=== PATIENT | female | born 1950 | race Two or more races ===

== ENCOUNTER 2018-02-25 11:10 | Inpatient (IN) | payer MEDICAID, OTHER ==
[~2018-02-25] VITALS: Ht 157.5 cm; Wt 62.3 kg
[2018-02-25] MEDS ORDERED: MORPHINE SULFATE 4 MG/ML CPJ (NOT FOR IM USE) IV STA (12:29)
[2018-02-25] MEDS ORDERED: SODIUM CHLORIDE 0.9% 1,000 ML IV ONE (12:33)
[2018-02-25 12:54] LABS: BASOPHILS % 0.3 % (0.0-2.0); EOSINOPHILS % 0.3 % (0.0-5.0); HEMATOCRIT. 28.1 % (36.0-48.0); HEMOGLOBIN. 8.9 g/dL (12.0-16.0); LYMPHOCYTES % 13.4 % (20.0-50.0); MEAN CORPUSCULAR HEMOGLOBIN 29.1 pg (28.0-32.0); MEAN CORPUSCULAR VOLUME 91.7 fL (81.0-99.0); MEAN PLATELET VOLUME 6.8 fl (7.4-10.4); MONOCYTES % 6.4 % (2.0-8.0); NEUTROPHILS % 79.6 % (40.0-76.0); PLATELET 673 x1000/uL (130-400); RED BLOOD CELL COUNT 3.06 mill/uL (4.2-5.4); RED CELL DISTRIBUTION WIDTH 18.5 % (11.6-14.6)
[2018-02-25 12:58] LABS: CHLORIDE 100 mEq/L (98-107)
[2018-02-25] MEDS ORDERED: DEXTROSE 50% WATER 50ML SYRINGE IV PRN (16:00)
[2018-02-25] MEDS ORDERED: ENOXAPARIN 40MG/0.4ML SYR SUBCUT SCH (16:00)
[2018-02-25] MEDS ORDERED: IPRATROPIUM/ALBUTEROL 0.5-3(2.5)MG/3ML NEB INH PRN (16:00)
[2018-02-25] MEDS ORDERED: CLONIDINE 0.1MG TABLET PO PRN (16:00)
[2018-02-25] MEDS ORDERED: LORAZEPAM 0.5MG TABLET PO PRN (16:00)
[2018-02-25] MEDS ORDERED: MAGNESIUM/ALUMINUM HYDROXIDE/SIMETHICONE 30ML UDC PO PRN (16:00)
[2018-02-25] MEDS ORDERED: ONDANSETRON HCL 4MG/2ML INJ IV PRN (16:00)
[2018-02-25] MEDS ORDERED: PIPERACILLIN/TAZ 3.375G PREMIX 50 ML IV SCH ×2 (16:00→19:45)
[2018-02-25] MEDS ORDERED: NA PHOS,M-B/NA PHOS,DI-BA ENEMA 118ML PR PRN (16:00)
[2018-02-25] MEDS ORDERED: DOCUSATE SODIUM 100MG CAPSULE PO PRN (16:00)
[2018-02-25 17:44] LABS: CLARITY URINE CLOUDY (CLEAR); COLOR URINE YELLOW (YELLOW); KETONES URINE NEGATIVE (NEGATIVE); LEUKOCYTE ESTERASE URINE 3+ (NEGATIVE); NITRITE URINE POSITIVE (NEGATIVE); OCCULT BLOOD URINE 2+ (NEGATIVE); PROTEIN URINE 2+ (NEGATIVE); SPECIFIC GRAVITY URINE 1.017 (1.005-1.030); UROBILINOGEN URINE 0.2 E.U./dL (0.2-1.0)
[2018-02-25 17:55] LABS: *AMPHETAMINES SCREEN URINE NEGATIVE (NEGATIVE); *BARBITURATES SCREEN URINE NEGATIVE (NEGATIVE); *BENZODIAZEPINES SCREEN URINE NEGATIVE (NEGATIVE); *COCAINE SCREEN URINE NEGATIVE (NEGATIVE)
[2018-02-25 17:56] LABS: CANNABINOID URINE SCREEN NEGATIVE (NEGATIVE); METHADONE URINE SCREEN NEGATIVE (NEGATIVE); OPIATES URINE SCREEN PRESUMTIVE POSITIVE (NEGATIVE); PHENCYCLIDINE URINE SCREEN NEGATIVE (NEGATIVE)
[2018-02-25 18:41] LABS: ETHANOL BLOOD < 10 mg/dL
[2018-02-25 18:44] LABS: HDL CHOLESTEROL 28 mg/dL (40-59); LDL CHOLESTEROL 32 mg/dL (5-100); TOTAL IRON BINDING CAPACITY 115 ug/dL (250-450)
[2018-02-25 18:56] LABS: FOLIC ACID (FOLATE) SERUM >20 ng/mL ng/mL (>5.38)
[2018-02-25 19:08] LABS: VITAMIN B12 SERUM 1420 pg/mL (211-911)
[2018-02-25] MEDS ORDERED: PANTOPRAZOLE 80 MG in SODIUM CHLORIDE 0.9% 100 ML IV SCH (20:00)
[2018-02-25] MEDS: PANTOPRAZOLE 80 MG in SODIUM CHLORIDE 0.9% 100 ML IV SCH (20:40)
[2018-02-25] MEDS: SODIUM CHLORIDE 0.9% 1,000 ML IV SCH (20:40)
[2018-02-25] MEDS: BLOOD SUGAR DIAGNOSTIC STRIP TEST SCH ×2 (21:00→21:41)
[2018-02-25] MEDS: INSULIN LISPRO 100 UNITS/ML SUBCUT SCH (21:42)
[2018-02-25] MEDS ORDERED: VANCOMYCIN 1 G PREMIX 200 ML IV SCH (23:30)
[2018-02-25 23:45] VITALS: BP 96/45
[2018-02-25 23:51] LABS: CREATINE KINASE MB FRACTION 2.7 ng/mL (0.5-3.6)
[2018-02-26] MEDS ORDERED: VANCOMYCIN 1250MG in DEXTROSE 5% WATER 250ML IV SCH (02:00)
[2018-02-26] MEDS: SODIUM CHLORIDE 0.9% 1,000 ML IV SCH ×3 (02:18→22:02)
[2018-02-26 04:00] VITALS: BP 129/72
[2018-02-26 07:02] LABS: CREATINE KINASE MB FRACTION 1.9 ng/mL (0.5-3.6)
[2018-02-26] MEDS: BLOOD SUGAR DIAGNOSTIC STRIP TEST SCH ×4 (07:06→21:22)
[2018-02-26] MEDS: PIPERACILLIN/TAZ 2.25G PREMIX 50 ML IV SCH ×4 (07:09→23:47)
[2018-02-26] MEDS: INSULIN LISPRO 100 UNITS/ML SUBCUT SCH ×4 (07:26→21:00)
[2018-02-26 08:00] VITALS: BP 98/46
[2018-02-26] MEDS: ACETAMINOPHEN 325MG TABLET PO PRN (08:47)
[2018-02-26] MEDS: PANTOPRAZOLE 80 MG in SODIUM CHLORIDE 0.9% 100 ML IV SCH (11:41)
[2018-02-26] MEDS: TRAMADOL 50MG TABLET PO PRN (11:57)
[2018-02-26] MEDS ORDERED: INFLUENZA VIRUS VACCINE(AFLURIA) 0.5ML SYR IM ONE (12:00)
[2018-02-26] MEDS ORDERED: PNEUMOCOCCAL 23-VAL P-SAC VAC 0.5 ML IM ONE (12:00)
[2018-02-26 14:25] VITALS: BP 94/50
[2018-02-26 15:31] LABS: HEMATOCRIT. 21.7 % (36.0-48.0); HEMOGLOBIN. 7.1 g/dL (12.0-16.0); MEAN CORPUSCULAR HEMOGLOBIN 29.1 pg (28.0-32.0); MEAN PLATELET VOLUME 6.6 fl (7.4-10.4); PLATELET 543 x1000/uL (130-400); RED BLOOD CELL COUNT 2.44 mill/uL (4.2-5.4); RED CELL DISTRIBUTION WIDTH 18.1 % (11.6-14.6)
[2018-02-26] MEDS: ALBUMIN HUMAN 25GM/100ML (25%) IV SCH ×2 (15:55→21:17)
[2018-02-26 16:00] VITALS: BP_SYST 105; BP_SYST 115; BP_DIAS 47; BP_DIAS 56
[2018-02-26 16:20] LABS: PLATELET ESTIMATE INCREASED
[2018-02-26] MEDS: SODIUM HYPOCHLORITE 0.125% 473ML SOLUTION TOP SCH (18:34)
[2018-02-26 20:00] VITALS: BP 94/46
[2018-02-26] MEDS: VANCOMYCIN 750 MG PREMIX 150 ML IV SCH (21:17)
[2018-02-26] MEDS: FAMOTIDINE 20MG TABLET PO SCH (21:17)
[2018-02-26 23:58] VITALS: BP 90/45
[2018-02-27] VITALS (11 sets, daily range): BP systolic 88–118; BP diastolic 33–58
[2018-02-27] MEDS ORDERED: VANCOMYCIN 1 G PREMIX 200 ML IV SCH (02:00)
[2018-02-27] MEDS: PIPERACILLIN/TAZ 2.25G PREMIX 50 ML IV SCH ×4 (06:41→23:50)
[2018-02-27] MEDS: BLOOD SUGAR DIAGNOSTIC STRIP TEST SCH ×4 (06:55→20:38)
[2018-02-27] MEDS: ALBUMIN HUMAN 25GM/100ML (25%) IV SCH (06:56)
[2018-02-27] MEDS: SODIUM CHLORIDE 0.9% 1,000 ML IV SCH ×2 (07:48→15:45)
[2018-02-27] MEDS: INSULIN LISPRO 100 UNITS/ML SUBCUT SCH ×4 (07:50→20:42)
[2018-02-27] MEDS: SODIUM HYPOCHLORITE 0.125% 473ML SOLUTION TOP SCH (09:00)
[2018-02-27 10:00] LABS: HEMATOCRIT 27.5 % (36.0-48.0); HEMOGLOBIN 9.2 g/dL (12.0-16.0)
[2018-02-27] MEDS: TRAMADOL 50MG TABLET PO PRN (11:22)
[2018-02-27] MEDS: VANCOMYCIN 750 MG PREMIX 150 ML IV SCH (13:55)
[2018-02-27] MEDS: FAMOTIDINE 20MG TABLET PO SCH (20:38)
[2018-02-28] VITALS: BP 109/52
[2018-02-28] MEDS: SODIUM CHLORIDE 0.9% 1,000 ML IV SCH ×2 (03:48→21:01)
[2018-02-28 04:00] VITALS: BP 114/50
[2018-02-28] MEDS: PIPERACILLIN/TAZ 2.25G PREMIX 50 ML IV SCH ×3 (06:20→17:09)
[2018-02-28] MEDS: ACETAMINOPHEN 325MG TABLET PO PRN (06:20)
[2018-02-28] MEDS: BLOOD SUGAR DIAGNOSTIC STRIP TEST SCH ×4 (06:28→21:00)
[2018-02-28 08:00] VITALS: BP 109/59
[2018-02-28] MEDS: SODIUM HYPOCHLORITE 0.125% 473ML SOLUTION TOP SCH (08:10)
[2018-02-28] MEDS: VANCOMYCIN 750 MG PREMIX 150 ML IV SCH (08:10)
[2018-02-28] MEDS: INSULIN LISPRO 100 UNITS/ML SUBCUT SCH ×4 (08:14→21:00)
[2018-02-28] MEDS: TRAMADOL 50MG TABLET PO PRN ×2 (08:17→16:32)
[2018-02-28 09:59] LABS: BASOPHILS % 0.4 % (0.0-2.0); EOSINOPHILS % 1.5 % (0.0-5.0); HEMOGLOBIN. 9.1 g/dL (12.0-16.0); LYMPHOCYTES % 11.2 % (20.0-50.0); MEAN CORPUSCULAR HEMOGLOBIN 29.2 pg (28.0-32.0); MEAN CORPUSCULAR VOLUME 86.8 fL (81.0-99.0); MEAN PLATELET VOLUME 6.7 fl (7.4-10.4); MONOCYTES % 4.1 % (2.0-8.0); NEUTROPHILS % 82.8 % (40.0-76.0); PLATELET 475 x1000/uL (130-400); RED BLOOD CELL COUNT 3.12 mill/uL (4.2-5.4); RED CELL DISTRIBUTION WIDTH 16.6 % (11.6-14.6)
[2018-02-28 11:34] VITALS: BP 96/51
[2018-02-28 15:29] VITALS: BP 106/54
[2018-02-28 20:00] VITALS: BP 113/55
[2018-02-28] MEDS: FAMOTIDINE 20MG TABLET PO SCH (20:58)
[2018-03-01] VITALS: BP 120/69
[2018-03-01] MEDS: PIPERACILLIN/TAZ 2.25G PREMIX 50 ML IV SCH ×3 (00:24→11:57)
[2018-03-01 04:00] VITALS: BP 137/73
[2018-03-01] MEDS: TRAMADOL 50MG TABLET PO PRN ×2 (04:29→15:25)
[2018-03-01] MEDS: BLOOD SUGAR DIAGNOSTIC STRIP TEST SCH ×2 (06:38→11:56)
[2018-03-01] MEDS: INSULIN LISPRO 100 UNITS/ML SUBCUT SCH ×2 (07:50→11:58)
[2018-03-01 08:37] VITALS: BP 131/70
[2018-03-01] MEDS: SODIUM CHLORIDE 0.9% 1,000 ML IV SCH (08:57)
[2018-03-01] MEDS: SODIUM HYPOCHLORITE 0.125% 473ML SOLUTION TOP SCH (08:57)
[2018-03-01 11:32] VITALS: BP 131/70
[2018-03-01 12:12] VITALS: BP 141/90
[2018-03-01 15:25] VITALS: BP 141/90
[2018-03-25] MEDS ORDERED: LINE600T32 MT (17:56)
== END 2018-03-01 15:55 | disposition home or self-care (01) | DRG 710 ==
LOC: ER 11:10 → 6WST 13:49 → EDBEDREQ 13:56 → EDBEDREQTM 13:56 → ENRESERV 22:14
PROVIDERS: ADMIT Internal Medicine; ATTEND Internal Medicine
PROC: 02HV33Z Insertion of Infusion Device into Superior Vena Cava, Percutaneous Approach (ICD-10-PCS; 2018-02-25)
PROC: B548ZZA Ultrasonography of Superior Vena Cava, Guidance (ICD-10-PCS; 2018-02-25)
PROC: 0KBV0ZZ Excision of Right Foot Muscle, Open Approach (ICD-10-PCS; principal; 2018-02-27)
PROC: 30233N1 Transfusion of Nonautologous Red Blood Cells into Peripheral Vein, Percutaneous Approach (ICD-10-PCS; 2018-02-27)
PROC: 0KBW0ZZ Excision of Left Foot Muscle, Open Approach (ICD-10-PCS; 2018-02-27)
DX: A41.9 Sepsis, unspecified organism (principal); N17.0 Acute kidney failure with tubular necrosis; E43 Unspecified severe protein-calorie malnutrition; L89.150 Pressure ulcer of sacral region, unstageable; D68.59 Other primary thrombophilia; L89.620 Pressure ulcer of left heel, unstageable; E83.51 Hypocalcemia; E87.1 Hypo-osmolality and hyponatremia; L89.890 Pressure ulcer of other site, unstageable; I10 Essential (primary) hypertension; K59.00 Constipation, unspecified; N28.1 Cyst of kidney, acquired; R65.20 Severe sepsis without septic shock; K63.89 Other specified diseases of intestine; E11.9 Type 2 diabetes mellitus without complications; E78.5 Hyperlipidemia, unspecified; J98.11 Atelectasis; I87.2 Venous insufficiency (chronic) (peripheral); N39.0 Urinary tract infection, site not specified; K80.20 Calculus of gallbladder without cholecystitis without obstruction; S90.822A Blister (nonthermal), left foot, initial encounter; R07.89 Other chest pain; S90.821A Blister (nonthermal), right foot, initial encounter; X58.XXXA Exposure to other specified factors, initial encounter; Y99.8 Other external cause status; Y93.89 Activity, other specified; Y92.89 Other specified places as the place of occurrence of the external cause; Z86.73 Personal history of transient ischemic attack (TIA), and cerebral infarction without residual deficits; I25.2 Old myocardial infarction; Z93.3 Colostomy status; Z68.25 Body mass index [BMI] 25.0-25.9, adult; Z93.6 Other artificial openings of urinary tract status; Z85.038 Personal history of other malignant neoplasm of large intestine; Z85.51 Personal history of malignant neoplasm of bladder
CPT/HCPCS: 36415; 36569; 71045; 71250; 74176; 76937; 80048; 80061; 80202; 80305; 82550; 82553; 82607; 82746; 82962; 83036; 83540; 83550; 83605; 83880; 84134; 84484; 85014; 85018; 85379; 86850; 86900; 86920; 87077; 87186; 93306; 93970; 96361; 96374; 99285; A6261; C1725; C1893; C9113; G0482; J1815; J2270; J2543; J3370; J7030; J7050; J7060; P9016; P9047

== ENCOUNTER 2018-03-20 13:53 | Inpatient (IN) | payer MEDICAID, OTHER ==
[~2018-03-20] VITALS: Ht 167.6 cm; Wt 54.9 kg
[2018-03-20] MEDS ORDERED: SODIUM CHLORIDE 0.9% 1,000 ML IV ONE (14:38)
[2018-03-20] MEDS ORDERED: PIPERACILLIN/TAZ 3.375G PREMIX 50 ML IV ONE (14:45)
[2018-03-20] MEDS ORDERED: VANCOMYCIN 1 G PREMIX 200 ML IV ONE (14:45)
[2018-03-20 15:43] LABS: CHLORIDE 89 mEq/L (98-107)
[2018-03-20 15:45] LABS: BASOPHILS % 0.2 % (0.0-2.0); EOSINOPHILS % 0.1 % (0.0-5.0); HEMOGLOBIN. 9.7 g/dL (12.0-16.0); INR 1.1; MEAN CORPUSCULAR HEMOGLOBIN 29.9 pg (28.0-32.0); MEAN CORPUSCULAR VOLUME 92.4 fL (81.0-99.0); MEAN PLATELET VOLUME 7.7 fl (7.4-10.4); MONOCYTES % 4.1 % (2.0-8.0); NEUTROPHILS % 87.6 % (40.0-76.0); PLATELET 716 x1000/uL (130-400); PROTHROMBIN TIME 11.5 sec (9.1-11.1); RED BLOOD CELL COUNT 3.25 mill/uL (4.2-5.4); RED CELL DISTRIBUTION WIDTH 20.2 % (11.6-14.6)
[2018-03-20] MEDS ORDERED: ONDANSETRON HCL 4MG/2ML INJ IV ONE (16:30)
[2018-03-20] MEDS ORDERED: MORPHINE SULFATE 4 MG/ML CPJ (NOT FOR IM USE) IV ONE (16:30)
[2018-03-20 16:53] LABS: CLARITY URINE TURBID (CLEAR); COLOR URINE AMBER (YELLOW); KETONES URINE TRACE (NEGATIVE); LEUKOCYTE ESTERASE URINE 3+ (NEGATIVE); NITRITE URINE POSITIVE (NEGATIVE); OCCULT BLOOD URINE 2+ (NEGATIVE); PH URINE 5.5 (4.5-8.0); PROTEIN URINE 2+ (NEGATIVE); SPECIFIC GRAVITY URINE 1.022 (1.005-1.030); UROBILINOGEN URINE 0.2 E.U./dL (0.2-1.0)
[2018-03-20] MEDS ORDERED: MAGNESIUM/ALUMINUM HYDROXIDE/SIMETHICONE 30ML UDC PO PRN (19:30)
[2018-03-20] MEDS ORDERED: DOCUSATE SODIUM 100MG CAPSULE PO PRN (19:30)
[2018-03-20] MEDS ORDERED: ENOXAPARIN 40MG/0.4ML SYR SUBCUT SCH (19:30)
[2018-03-20] MEDS ORDERED: IPRATROPIUM/ALBUTEROL 0.5-3(2.5)MG/3ML NEB INH PRN (19:30)
[2018-03-20] MEDS ORDERED: DIPHENHYDRAMINE 50MG/ML VIAL IV PRN (19:30)
[2018-03-20] MEDS ORDERED: ACETAMINOPHEN 650MG/20.3ML UDC GT PRN (19:30)
[2018-03-20] MEDS ORDERED: ACETAMINOPHEN 650MG SUPP PR PRN (19:30)
[2018-03-20] MEDS ORDERED: CLONIDINE 0.1MG TABLET PO PRN (19:30)
[2018-03-20] MEDS ORDERED: ONDANSETRON HCL 4MG/2ML INJ IV PRN (19:30)
[2018-03-20] MEDS ORDERED: GUAIFENESIN 200MG/10ML SUGAR FREE UDC PO PRN (19:30)
[2018-03-20] MEDS ORDERED: ACETAMINOPHEN 325MG TABLET PO PRN (19:30)
[2018-03-20] MEDS ORDERED: PIPERACILLIN/TAZ 3.375G PREMIX 50 ML IV SCH (19:30)
[2018-03-20] MEDS ORDERED: NA PHOS,M-B/NA PHOS,DI-BA ENEMA 118ML PR PRN (21:00)
[2018-03-20 22:00] VITALS: BP 85/47
[2018-03-20] MEDS: SODIUM CHLORIDE 0.45% 1,000 ML IV SCH (22:39)
[2018-03-20] MEDS: SODIUM CHLORIDE 0.9% INJ 3ML FLUSH IVF SCH (22:39)
[2018-03-20 23:00] VITALS: BP 90/47
[2018-03-21] VITALS (10 sets, daily range): BP systolic 85–95; BP diastolic 44–47
[2018-03-21] MEDS: PIPERACILLIN/TAZ 2.25G PREMIX 50 ML IV SCH ×3 (01:29→16:04)
[2018-03-21] MEDS ORDERED: SODIUM CHLORIDE 0.9% 1,000 ML IV SCH ×2 (02:00→03:00)
[2018-03-21] MEDS ORDERED: ALBUMIN HUMAN 25GM/100ML (25%) IV SCH (03:00)
[2018-03-21] MEDS: SODIUM CHLORIDE 0.9% INJ 3ML FLUSH IVF SCH ×3 (07:09→22:40)
[2018-03-21 07:17] LABS: HEMATOCRIT. 24.9 % (36.0-48.0); HEMOGLOBIN. 8.1 g/dL (12.0-16.0); MEAN CORPUSCULAR HEMOGLOBIN 30.2 pg (28.0-32.0); MEAN PLATELET VOLUME 7.1 fl (7.4-10.4); PLATELET 572 x1000/uL (130-400); RED BLOOD CELL COUNT 2.68 mill/uL (4.2-5.4); RED CELL DISTRIBUTION WIDTH 20.5 % (11.6-14.6)
[2018-03-21 07:33] LABS: CHLORIDE 98 mEq/L (98-107)
[2018-03-21 08:17] LABS: CREATINE KINASE 21 IU/L (26-192); LDL CHOLESTEROL 51 mg/dL (5-100)
[2018-03-21 08:18] LABS: HDL CHOLESTEROL 18 mg/dL (40-59)
[2018-03-21 08:21] LABS: CREATINE KINASE MB FRACTION < 1.0 ng/mL (0.5-3.6)
[2018-03-21] MEDS: SODIUM CHLORIDE 0.45% 1,000 ML IV SCH (09:19)
[2018-03-21] MEDS ORDERED: LIDOCAINE HCL/EPINEPHRINE 1%-EPI 1:100,000 20 ML VIAL INFIL NR (10:00)
[2018-03-21] MEDS ORDERED: DEXTROSE 50% WATER 50ML SYRINGE IV PRN (15:00)
[2018-03-21] MEDS ORDERED: DIPHENOXYLATE/ATROPINE 2.5/0.025MG TABLET PO NR (15:00)
[2018-03-21] MEDS ORDERED: SODIUM CHLORIDE 0.9% 1000ML BAG (SEPSIS BOLUS) IV NR (15:00)
[2018-03-21 16:12] LABS: PLATELET ESTIMATE INCREASED
[2018-03-21] MEDS: BLOOD SUGAR DIAGNOSTIC STRIP TEST SCH ×2 (16:45→21:40)
[2018-03-21] MEDS: INSULIN LISPRO 100 UNITS/ML SUBCUT SCH ×2 (17:15→21:00)
[2018-03-21] MEDS: DEXT 5%/0.9% NACL 1,000 ML IV SCH (20:12)
[2018-03-21] MEDS ORDERED: VANCOMYCIN 750 MG PREMIX 150 ML IV SCH (21:00)
[2018-03-21] MEDS ORDERED: FLUCONAZOLE 200 MG/100ML BAG 100 ML IV NR (22:00)
[2018-03-21] MEDS: ENOXAPARIN 30MG/0.3ML SYR SUBCUT SCH ×2 (22:40)
[2018-03-22] VITALS (7 sets, daily range): BP systolic 86–103; BP diastolic 44–52
[2018-03-22] MEDS: PIPERACILLIN/TAZ 2.25G PREMIX 50 ML IV SCH ×2 (01:04→08:20)
[2018-03-22 06:50] LABS: HEMATOCRIT. 27.6 % (36.0-48.0); HEMOGLOBIN. 8.9 g/dL (12.0-16.0); MEAN CORPUSCULAR HEMOGLOBIN 29.8 pg (28.0-32.0); MEAN CORPUSCULAR VOLUME 92.9 fL (81.0-99.0); RED BLOOD CELL COUNT 2.98 mill/uL (4.2-5.4); RED CELL DISTRIBUTION WIDTH 20.3 % (11.6-14.6)
[2018-03-22] MEDS: BLOOD SUGAR DIAGNOSTIC STRIP TEST SCH ×4 (06:54→21:07)
[2018-03-22] MEDS: INSULIN LISPRO 100 UNITS/ML SUBCUT SCH ×4 (06:55→21:42)
[2018-03-22] MEDS: SODIUM CHLORIDE 0.9% INJ 3ML FLUSH IVF SCH ×3 (06:57→21:33)
[2018-03-22 07:24] LABS: CHLORIDE 99 mEq/L (98-107)
[2018-03-22 07:31] LABS: PHOSPHORUS 4.1 mg/dL (2.5-4.9)
[2018-03-22] MEDS: DEXT 5%/0.9% NACL 1,000 ML IV SCH ×2 (08:33→21:06)
[2018-03-22 10:12] LABS: CORTISOL 21.5 ucg/dL
[2018-03-22 10:13] LABS: CARCINO EMBRYONIC ANTIGEN 8.1 ng/ml
[2018-03-22 15:17] LABS: PLATELET ESTIMATE INCREASED
[2018-03-22 15:18] LABS: PLATELET 666 x1000/uL (130-400)
[2018-03-22] MEDS ORDERED: PIPERACILLIN/TAZ 2.25G PREMIX 50 ML IV SCH (18:00)
[2018-03-22] MEDS: NYSTATIN POWDER 15GM TOP SCH (18:47)
[2018-03-22] MEDS: ENOXAPARIN 30MG/0.3ML SYR SUBCUT SCH ×2 (21:07→21:34)
[2018-03-22] MEDS: CEFTAZIDIME PENTAHYDRATE 1 G in DEXTROSE 5% WATER 50 ML IV SCH (21:07)
[2018-03-22] MEDS: FLUCONAZOLE 100MG/50ML in BAG IV SCH (21:35)
[2018-03-23] VITALS: BP 89/51
[2018-03-23] MEDS: DEXT 5%/0.9% NACL 1,000 ML IV SCH
[2018-03-23 04:00] VITALS: BP 94/52
[2018-03-23] MEDS: BLOOD SUGAR DIAGNOSTIC STRIP TEST SCH ×4 (06:15→21:24)
[2018-03-23] MEDS: SODIUM CHLORIDE 0.9% INJ 3ML FLUSH IVF SCH ×3 (06:33→21:24)
[2018-03-23] MEDS: INSULIN LISPRO 100 UNITS/ML SUBCUT SCH ×4 (06:37→21:24)
[2018-03-23 08:23] VITALS: BP 111/54
[2018-03-23] MEDS: NYSTATIN POWDER 15GM TOP SCH ×3 (09:49→21:26)
[2018-03-23 12:15] VITALS: BP 106/53
[2018-03-23 16:00] VITALS: BP 129/66
[2018-03-23 17:40] LABS: BASOPHILS % 0.2 % (0.0-2.0); HEMATOCRIT. 28.6 % (36.0-48.0); HEMOGLOBIN. 9.2 g/dL (12.0-16.0); LYMPHOCYTES % 8.1 % (20.0-50.0); MEAN CORPUSCULAR HEMOGLOBIN 29.8 pg (28.0-32.0); MEAN CORPUSCULAR VOLUME 92.6 fL (81.0-99.0); MEAN PLATELET VOLUME 7.2 fl (7.4-10.4); MONOCYTES % 2.6 % (2.0-8.0); NEUTROPHILS % 88.1 % (40.0-76.0); PLATELET 694 x1000/uL (130-400); RED BLOOD CELL COUNT 3.09 mill/uL (4.2-5.4); RED CELL DISTRIBUTION WIDTH 20.8 % (11.6-14.6)
[2018-03-23 17:51] LABS: CHLORIDE 99 mEq/L (98-107)
[2018-03-23] MEDS: HYDROCODONE/ACETAMINOPHEN 5/325MG TABLET PO PRN (18:15)
[2018-03-23 20:00] VITALS: BP 111/53
[2018-03-23] MEDS: FLUCONAZOLE 100MG/50ML in BAG IV SCH (21:00)
[2018-03-23] MEDS: ENOXAPARIN 30MG/0.3ML SYR SUBCUT SCH (21:25)
[2018-03-23] MEDS: CEFTAZIDIME PENTAHYDRATE 1 G in DEXTROSE 5% WATER 50 ML IV SCH (21:25)
[2018-03-23] MEDS ORDERED: LINEZOLID 600 MG PREMIX 300 ML IV SCH (21:30)
[2018-03-23] MEDS: LINEZOLID 600 MG PREMIX 300 ML IV SCH (22:30)
[2018-03-24] VITALS: BP 128/57
[2018-03-24] MEDS: DEXT 5%/0.9% NACL 1,000 ML IV SCH ×2 (02:33→20:23)
[2018-03-24 04:00] VITALS: BP 128/57
[2018-03-24] MEDS: SODIUM CHLORIDE 0.9% INJ 3ML FLUSH IVF SCH ×3 (06:00→21:09)
[2018-03-24] MEDS: BLOOD SUGAR DIAGNOSTIC STRIP TEST SCH ×4 (06:47→20:18)
[2018-03-24] MEDS: INSULIN LISPRO 100 UNITS/ML SUBCUT SCH ×4 (06:48→20:19)
[2018-03-24 07:50] VITALS: BP 104/53
[2018-03-24 10:19] LABS: PHOSPHORUS 3.7 mg/dL (2.5-4.9)
[2018-03-24] MEDS: LINEZOLID 600 MG PREMIX 300 ML IV SCH ×2 (10:30→23:40)
[2018-03-24 11:58] VITALS: BP 97/58
[2018-03-24] MEDS ORDERED: SODIUM BICARBONATE 4% (2.4MEQ) 5ML VIAL IV ONE (13:41)
[2018-03-24] MEDS ORDERED: LIDOCAINE HCL 1% 20ML VIAL (Pyxis) INJ ONE (13:41)
[2018-03-24 15:55] LABS: BASOPHILS % 0.1 % (0.0-2.0); EOSINOPHILS % 0.5 % (0.0-5.0); HEMATOCRIT. 29.7 % (36.0-48.0); HEMOGLOBIN. 9.4 g/dL (12.0-16.0); LYMPHOCYTES % 9.6 % (20.0-50.0); MEAN CORPUSCULAR HEMOGLOBIN 29.9 pg (28.0-32.0); MEAN CORPUSCULAR VOLUME 94.6 fL (81.0-99.0); MEAN PLATELET VOLUME 6.8 fl (7.4-10.4); MONOCYTES % 3.3 % (2.0-8.0); NEUTROPHILS % 86.5 % (40.0-76.0); PLATELET 671 x1000/uL (130-400); RED BLOOD CELL COUNT 3.14 mill/uL (4.2-5.4); RED CELL DISTRIBUTION WIDTH 20.9 % (11.6-14.6)
[2018-03-24 16:00] VITALS: BP 111/54
[2018-03-24] MEDS: NYSTATIN POWDER 15GM TOP SCH ×2 (17:41→20:20)
[2018-03-24 20:00] VITALS: BP 118/60
[2018-03-24] MEDS: CEFTAZIDIME PENTAHYDRATE 1 G in DEXTROSE 5% WATER 50 ML IV SCH (20:18)
[2018-03-24] MEDS: ENOXAPARIN 30MG/0.3ML SYR SUBCUT SCH (21:08)
[2018-03-24] MEDS: FLUCONAZOLE 100MG/50ML in BAG IV SCH (21:09)
[2018-03-24] MEDS ORDERED: DIPHENOXYLATE/ATROPINE 2.5/0.025MG TABLET PO NR (21:58)
[2018-03-25] VITALS: BP 116/52
[2018-03-25 04:00] VITALS: BP 118/59
[2018-03-25] MEDS: HYDROCODONE/ACETAMINOPHEN 5/325MG TABLET PO PRN (04:37)
[2018-03-25] MEDS: SODIUM CHLORIDE 0.9% INJ 3ML FLUSH IVF SCH ×3 (06:47→22:06)
[2018-03-25] MEDS: INSULIN LISPRO 100 UNITS/ML SUBCUT SCH ×4 (06:47→21:00)
[2018-03-25] MEDS: BLOOD SUGAR DIAGNOSTIC STRIP TEST SCH ×4 (06:47→21:30)
[2018-03-25 08:00] VITALS: BP 103/55
[2018-03-25 08:42] LABS: PHOSPHORUS 3.5 mg/dL (2.5-4.9)
[2018-03-25 08:44] LABS: BASOPHILS % 0.6 % (0.0-2.0); EOSINOPHILS % 0.7 % (0.0-5.0); HEMATOCRIT. 24.3 % (36.0-48.0); LYMPHOCYTES % 10.8 % (20.0-50.0); MEAN CORPUSCULAR HEMOGLOBIN 29.9 pg (28.0-32.0); MEAN PLATELET VOLUME 7.2 fl (7.4-10.4); MONOCYTES % 3.5 % (2.0-8.0); NEUTROPHILS % 84.4 % (40.0-76.0); PLATELET 603 x1000/uL (130-400); RED BLOOD CELL COUNT 2.67 mill/uL (4.2-5.4)
[2018-03-25] MEDS: NYSTATIN POWDER 15GM TOP SCH ×5 (08:47→21:36)
[2018-03-25] MEDS ORDERED: POTASSIUM CHLORIDE 20MEQ TABLET SR PO NR ×2 (09:00→12:00)
[2018-03-25] MEDS: LINEZOLID 600 MG PREMIX 300 ML IV SCH ×2 (11:44→22:56)
[2018-03-25 12:15] VITALS: BP 113/52
[2018-03-25 16:30] VITALS: BP 99/51
[2018-03-25] MEDS ORDERED: LINE600T32 MT (17:56)
[2018-03-25 20:00] VITALS: BP 115/67
[2018-03-25] MEDS ORDERED: DIPHENOXYLATE/ATROPINE 2.5/0.025MG TABLET PO NR (20:30)
[2018-03-25] MEDS: CEFTAZIDIME PENTAHYDRATE 1 G in DEXTROSE 5% WATER 50 ML IV SCH (20:55)
[2018-03-25] MEDS: ENOXAPARIN 30MG/0.3ML SYR SUBCUT SCH (22:07)
[2018-03-26] VITALS (7 sets, daily range): BP systolic 96–119; BP diastolic 54–64
[2018-03-26] MEDS: INSULIN LISPRO 100 UNITS/ML SUBCUT SCH ×3 (06:32→17:15)
[2018-03-26] MEDS: BLOOD SUGAR DIAGNOSTIC STRIP TEST SCH ×3 (06:32→16:51)
[2018-03-26] MEDS: SODIUM CHLORIDE 0.9% INJ 3ML FLUSH IVF SCH ×2 (07:02→15:18)
[2018-03-26] MEDS: LINEZOLID 600 MG PREMIX 300 ML IV SCH (10:28)
[2018-03-26] MEDS: NYSTATIN POWDER 15GM TOP SCH ×2 (10:29→15:18)
[2018-03-26 11:03] LABS: BASOPHILS % 0.4 % (0.0-2.0); EOSINOPHILS % 0.4 % (0.0-5.0); HEMATOCRIT. 26.5 % (36.0-48.0); HEMOGLOBIN. 8.7 g/dL (12.0-16.0); LYMPHOCYTES % 12.8 % (20.0-50.0); MEAN CORPUSCULAR VOLUME 90.9 fL (81.0-99.0); MONOCYTES % 2.8 % (2.0-8.0); NEUTROPHILS % 83.6 % (40.0-76.0); PLATELET 624 x1000/uL (130-400); RED BLOOD CELL COUNT 2.91 mill/uL (4.2-5.4); RED CELL DISTRIBUTION WIDTH 20.8 % (11.6-14.6)
[2018-03-26 11:24] LABS: PHOSPHORUS 3.1 mg/dL (2.5-4.9)
[2018-03-26] MEDS ORDERED: HYDROCODONE/ACETAMINOPHEN 10/325MG TABLET PO PRN (12:00)
[2018-03-26] MEDS ORDERED: POTASSIUM CHLORIDE 20MEQ TABLET SR PO SCH (14:30)
[2018-03-26] MEDS ORDERED: MAGNESIUM 2 G PREMIX 50 ML IV SCH (14:30)
== END 2018-03-26 20:32 | disposition home or self-care (01) | DRG 710 ==
LOC: ER 13:53 → 5WST 16:46 → EDBEDREQ 16:49 → EDBEDREQTM 16:49 → EDBEDREQSVC 16:49 → ENRESERV 18:35
PROVIDERS: ADMIT Family Medicine; ATTEND Family Medicine
PROC: 0KBN0ZZ Excision of Right Hip Muscle, Open Approach (ICD-10-PCS; 2018-03-21)
PROC: 0KBP0ZZ Excision of Left Hip Muscle, Open Approach (ICD-10-PCS; 2018-03-21)
PROC: 02HV33Z Insertion of Infusion Device into Superior Vena Cava, Percutaneous Approach (ICD-10-PCS; principal; 2018-03-24)
PROC: B548ZZA Ultrasonography of Superior Vena Cava, Guidance (ICD-10-PCS; 2018-03-24)
PROC: B5181ZA Fluoroscopy of Superior Vena Cava using Low Osmolar Contrast, Guidance (ICD-10-PCS; 2018-03-24)
DX: A41.9 Sepsis, unspecified organism (principal); N17.0 Acute kidney failure with tubular necrosis; E43 Unspecified severe protein-calorie malnutrition; L89.154 Pressure ulcer of sacral region, stage 4; E11.22 Type 2 diabetes mellitus with diabetic chronic kidney disease; C76.3 Malignant neoplasm of pelvis; E11.621 Type 2 diabetes mellitus with foot ulcer; E11.51 Type 2 diabetes mellitus with diabetic peripheral angiopathy without gangrene; N39.0 Urinary tract infection, site not specified; B96.20 Unspecified Escherichia coli [E. coli] as the cause of diseases classified elsewhere; D63.8 Anemia in other chronic diseases classified elsewhere; L89.520 Pressure ulcer of left ankle, unstageable; L89.620 Pressure ulcer of left heel, unstageable; E86.0 Dehydration; B95.62 Methicillin resistant Staphylococcus aureus infection as the cause of diseases classified elsewhere; F03.90 Unspecified dementia, unspecified severity, without behavioral disturbance, psychotic disturbance, mood disturbance, and anxiety; E87.1 Hypo-osmolality and hyponatremia; E87.6 Hypokalemia; R19.7 Diarrhea, unspecified; B96.89 Other specified bacterial agents as the cause of diseases classified elsewhere; N18.3 Chronic kidney disease, stage 3 (moderate); I12.9 Hypertensive chronic kidney disease with stage 1 through stage 4 chronic kidney disease, or unspecified chronic kidney disease; I25.10 Atherosclerotic heart disease of native coronary artery without angina pectoris; L30.4 Erythema intertrigo; M21.379 Foot drop, unspecified foot; Z74.01 Bed confinement status; Z85.028 Personal history of other malignant neoplasm of stomach; Z86.73 Personal history of transient ischemic attack (TIA), and cerebral infarction without residual deficits; Z87.440 Personal history of urinary (tract) infections; Z90.49 Acquired absence of other specified parts of digestive tract; Z93.3 Colostomy status; Z93.6 Other artificial openings of urinary tract status; Z79.899 Other long term (current) drug therapy; Z68.1 Body mass index [BMI] 19.9 or less, adult
CPT/HCPCS: 36415; 36569; 71045; 72220; 74176; 76937; 77001; 80048; 80061; 80202; 82378; 82533; 82550; 82553; 82962; 83605; 83735; 83880; 84100; 84132; 84134; 84145; 84443; 84484; 87070; 87077; 87186; 87493; 93005; 96365; 96366; 96368; 96375; 99291; A6261; C1725; C1893; J0713; J1450; J1650; J1815; J2020; J2270; J2405; J2543; J3370; J3475; J3490; J7030; J7042; J7050; J7060; P9047